=== PATIENT | male | born 1980 ===

== ENCOUNTER 2018-06-12 05:13 | Inpatient (IN) | payer OTHER, SELFPAY ==
[2018-06-12] MEDS ORDERED: Propofol 1,000 MG/100 ML VIAL IV ONE (05:18)
[2018-06-12] MEDS ORDERED: fentaNYL Citrate/PF 2,000 MCG in Sodium Chloride 0.9% 60 ML IV SCH ×2 (05:19→06:56)
[2018-06-12 05:42] LABS: CO2 Tension 75.4 mmHg (35.0-45.0); O2 Tension (PaO2) 74.5 mmHg (80.0-100.0); pH, Arterial 7.12 (7.35-7.45)
[2018-06-12 05:43] LABS: Actual Bicarbonate (HCO3a) 23.8 mEq/L (22-28); Base Excess (BEa) -7.7 mEq/L (-2.0 to +3.0); Calcium, Ionized 1.14 mmol/L (1.12-1.30); Carboxyhemoglobin (COHb) 0.4 gm% (0.0-3.0); Hemoglobin (Hb) 17.4 g/dL (14.0-18.0); Potassium - ABG Lab 3.54 mmol/L (3.70-5.30)
[2018-06-12 05:44] LABS: Analyzer IN Cardio ER; Puncture Site LRA
[2018-06-12] MEDS ORDERED: niCARdipine 20MG In NaCl 20 MG/200 ML BAG ONE (05:50)
[2018-06-12] MEDS ORDERED: Piperacillin/Tazobactam 3.375 GM in Sodium Chloride 0.9% 100 ML IVPB SCH (06:00)
[2018-06-12] MEDS ORDERED: Ondansetron PF 4 MG/2 ML Vial IVP PRN (06:32)
[2018-06-12] MEDS ORDERED: Acetaminophen 650 MG Suppository PR PRN (06:32)
[2018-06-12] MEDS ORDERED: Ventilator Sedation Protocol 1 EACH FS ONE (06:39)
[2018-06-12] MEDS ORDERED: Propofol 1,000 MG/100 ML VIAL IV PRN (06:56)
[2018-06-12] MEDS ORDERED: DISCONTINUE PREVIOUS NARCOTIC PAIN MEDICATIONS AND BENZODIAZEPINES FS SCH (06:56)
[2018-06-12] MEDS ORDERED: Lorazepam 2 MG/ML VIAL SLOW IVP PRN (06:56)
[2018-06-12] MEDS ORDERED: Fentanyl BOLUS 250 ML IVPB PRN (06:56)
[2018-06-12] MEDS ORDERED: Propofol BOLUS 1,000 MG/100 ML VIAL IV PRN (06:56)
[2018-06-12] MEDS ORDERED: Morphine 2 MG/ML SYRINGE SLOW IVP PRN (06:58)
[2018-06-12] MEDS ORDERED: Potassium Chloride 20 MEQ in Premix Bag 1 BAG IVPB SCH (07:15)
[2018-06-12] MEDS ORDERED: Vancomycin HCl 1 GM in Premix Bag 1 BAG IVPB SCH (08:00)
[2018-06-12 08:23] LABS: Troponin I 1.303 ng/mL (< 0.028)
[2018-06-12 08:36] LABS: Actual Bicarbonate (HCO3a) 20.9 mEq/L (22-28); Base Excess (BEa) -8.6 mEq/L (-2.0 to +3.0); CO2 Tension 58.6 mmHg (35.0-45.0); Calcium, Ionized 1.06 mmol/L (1.12-1.30); Carboxyhemoglobin (COHb) 0.9 gm% (0.0-3.0); Hemoglobin (Hb) 16.8 g/dL (14.0-18.0); Potassium - ABG Lab 3.94 mmol/L (3.70-5.30)
[2018-06-12 08:37] LABS: O2 Tension (PaO2) 58.4 mmHg (80.0-100.0); pH, Arterial 7.17 (7.35-7.45)
[2018-06-12 08:38] LABS: Puncture Site RR
[2018-06-12 08:44] VITALS: BMI 31.1
[2018-06-12] MEDS ORDERED: Famotidine/PF 20 mg/2ml Vial SLOW IVP SCH (09:00)
--- NOTE | 2018-06-12 09:51 | CT ---
PRELIMINARY REPORT/[facility]/EMERGENTY AFTER-HOURS PROCEDURE CT Angiography Head With Intravenous Contrast EXAM DATE/TIME: 06/12/2018 6:17 AM CLINICAL HISTORY: 37 years old, male; Signs and symptoms; Convulsions / seizures; Type not specified; Patient HX: 37m p resents to the ed after being transferred from [place] [facility]. Previous scan shows sub arachnoid hemorrhage. No known injury or trauma. O2 sat 90 - 92 until arrival it was 97. TECHNIQUE: Axial computed tomographic angiography images of the head with intravenous contrast using CT angiogra phy protocol. Coronal and sagittal reformatted images were created and reviewed. MIP reconstructed images were created and reviewed. COMPARISON: No relevant prior studies available. FINDINGS: Right internal carotid artery: Unremarkable. Intracranial segment is patent with no significant steno sis. No aneurysm. Right anterior cerebral artery: Unremarkable. No occlusion or significant stenosis. No aneurysm. Right middle cerebral artery: Unremarkable. No occlusion or significant stenosis. No aneurysm. Right posterior cerebral artery: Unremarkable. No occlusion or significant stenosis. No aneurysm. Right vertebral artery: Unremarkable. No occlusion or significant stenosis. No aneurysm. Left internal carotid artery: There is a 5 x 4 x 3 mm saccular aneurysm arising from the left posteri or internal carotid artery at the expected origin of the posterior communicating artery origin. Left anterior cerebral artery: Unremarkable. No occlusion or significant stenosis. No aneurysm. Left middle cerebral artery: Unremarkable. No occlusion or significant stenosis. No aneurysm. Left posterior cerebral artery: Unremarkable. No occlusion or significant stenosis. No aneurysm. Left vertebral artery: Unremarkable. No occlusion or significant stenosis. No aneurysm. Basilar artery: Unremarkable. No occlusion or significant stenosis. No aneurysm. Other: No subarachnoid hemorrhage is not well visualized secondary to the presence of IV contrast mat erial. There is no mass effect or shift of midline structures. There is no hydrocephalus. There are small air-fluid levels within the maxillary sinuses. 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 Thank you for allowing us to participate in the care of your patient. Dictated and Authenticated by: Cristina Arcos MD 06/12/2018 7:44 AM Central Time ([place] & [place]) FINAL REPORT HEAD CT ANGIOGRAM WITH 3D RENDERING: EMERGENCY AFTER HOURS EXAM TIME: 6:19 a.m. DATE: 06/12/2018. FINDINGS: There is an approximately 0.3 x 0.4 x 0.5 cm sacular aneurysm arising posteriorly from the left poste rior internal carotid artery at the level of the posterior communicating artery. Extensive subarachn oid hemorrhage as well as some intraventricular hemorrhage. Extensive sinus fluid and mucosal diseas e. POS: [facility]
[2018-06-12] MEDS ORDERED: ISOVUE-370 76%-LOCM 1 ML ONE (10:19)
[2018-06-12 10:31] LABS: Troponin I 2.187 ng/mL (< 0.028)
--- NOTE | 2018-06-12 10:54 | RAD ---
CHEST 1 VIEW: HISTORY: Seizure. COMPARISON: None. FINDINGS: The patient was intubated with endotracheal tube tip above the chris approximately 1.8 cm. Enteric tube sideport within the gastric body. There is extensive pulmonary edema. Heart size is mildly enl arged. IMPRESSION: Extensive pulmonary edema, likely neurogenic in nature given the patient's history. POS: [facility]
--- NOTE | 2018-06-12 10:55 | RAD ---
ABDOMEN 1 VIEW: HISTORY: Subarachnoid hemorrhage. COMPARISON: None. FINDINGS: The enteric tube tip is in the gastric body. There is moderate gaseous distention of the stomach. Moderate stool burden throughout the colon. IMPRESSION: Moderate gaseous distention of the stomach. POS: [facility]
[2018-06-12] MEDS ORDERED: Tranexamic Acid 1,000 MG in Sodium Chloride 0.9% 100 ML IVPB SCH (11:00)
[2018-06-12] MEDS ORDERED: Tranexamic Acid 1,000 MG in Sodium Chloride 0.9% 250 ML 250 ML IVPB SCH (11:15)
[2018-06-12 11:45] LABS: Actual Bicarbonate (HCO3a) 18.9 mEq/L (22-28); Base Excess (BEa) -8.2 mEq/L (-2.0 to +3.0); CO2 Tension 44.5 mmHg (35.0-45.0); Calcium, Ionized 1.06 mmol/L (1.12-1.30); Carboxyhemoglobin (COHb) 0.8 gm% (0.0-3.0); Hemoglobin (Hb) 15.6 g/dL (14.0-18.0); O2 Tension (PaO2) 96.2 mmHg (80.0-100.0); Potassium - ABG Lab 4.79 mmol/L (3.70-5.30); pH, Arterial 7.25 (7.35-7.45)
[2018-06-12 11:46] LABS: ALV-art Gradient 561.175 (0-20); Puncture Site LB
--- NOTE | 2018-06-12 12:05 | PRG ---
DATE OF SERVICE: 06/12/2018 This is a 30-minute initial hospital visit note in which 30 minutes were spent in reviewing the imagi ng record, evaluation and examination of the patient and formulation of plan. Greater than 50% of th e time was spent in counseling. SUBJECTIVE: Mr. Reyes is a 37-year-old incarcerated man. He sustained a thunderclap headache early this morning. Head CT demonstrates a Farmer 3+1 aneurysmal subarachnoid hemorrhage aneurysm that is found in the left common PCOM region, approximately [address] in size on CT angiography. His exam is fav orable in that he is nonfocal, but he is sedated and his hemodynamics are acceptable at this point. I do not have a way to do formal angiography for diagnostic and therapeutic purposes and I have spoke n with our colleagues in [facility] who accepted him for angiography for diagnostic and pot entially therapeutic purposes or any further management they deem appropriate. I should note he does not have hydrocephalus, although obviously has a tight-appearing brain. His exam remains favorable. We will initiate tranexamic acid and nimodipine and arrange for transfer. He is already intubated.
[2018-06-12] MEDS ORDERED: niMODipine 30 MG CAP PO SCH (13:00)
[2018-06-12] MEDS ORDERED: niMODipine 30 MG CAP PER TUBE SCH (13:00)
--- NOTE | 2018-06-12 13:23 | CON ---
DATE OF CONSULTATION: 06/12/2018 HISTORY OF PRESENT ILLNESS: Mr. Reyes is a 37-year-old male from the [employer]. History is obtained from the nurse. Apparently, he was found down in intermediate with seizure activity. CT scan in [place] sh owed subarachnoid bleed. [place] [facility] [place] angiogram shows an aneurysm here. Neurosurgery has been consulted, but has not seen the patient yet. PAST MEDICAL HISTORY, FAMILY HISTORY, SOCIAL HISTORY: All unknown. He is incarcerated in the [employer]. PHYSICAL EXAMINATION: VITAL SIGNS: Blood pressure 150/72, heart rate was 132 earlier, it is 74 before that. He became tyler tated a little while ago and sat up in bed. He is now deeply sedated. HEENT: His pupils react. Sclerae is anicteric. NECK: Supple. LUNGS: Clear anteriorly. HEART: Regular rhythm. S1 and S2 are normal. ABDOMEN: Soft and nontender. EXTREMITIES: Without clubbing, cyanosis, or edema. LABORATORY DATA: The pH 7.17, pCO2 of 58, pO2 58, this is on IMV of 16 in the emergency room. Venti lator was adjusted as soon as the patient arrived in the critical care unit. For some reason a tropo edel was done. Labs in [place] showed a white count 25, hemoglobin 15.8, platelets 320,000. Sodium 140, potass ium 2.4, chloride 105, bicarbonate 24, BUN 10, creatinine 1.23, glucose 222. IMPRESSION: 1. Subarachnoid hemorrhage. 2. 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 He will be kept deeply sedated until Neurosurgery needs him to be allowed to wake up for an assessmen t. He is actually for extremity changes and needs to continue to be restrained for protection of the nurses as he awakened quite combative. Critical care time was 30 minutes. Repeat blood gas will be done at noon.
--- NOTE | 2018-06-12 14:00 | PDOC.EVN ---
Event Note - Event Note Event Note: Saw pt earlier today.Admitted to [facility] for SAH and aneurysms. Chart reviewed.Care discussed w RN. Later on chart review i found out that Pt has been transferred by consultants for higher level of care . I was not notified by anyone about the need for transfer or the fact that Pt is being transferred. Pls note that the transfer happened without my knowledge.
[2018-06-12 14:46] VITALS: BP 91/72; TEMP 98.6
--- NOTE | 2018-06-13 14:33 | HP ---
PRIMARY CARE PHYSICIAN: The patient lives in residential. CODE STATUS: FULL CODE. TIME OF EVALUATION: 6:00 a.m. CHIEF COMPLAINT: The patient was noted to have a seizure. HISTORY OF PRESENT ILLNESS: This is a 37-year-old male patient with no known past medical history, brought in from [facility] with seizure-like activity _ ____ first symptoms they noticed on the patient was active seizures. For that reason, he was brought in to the ER, there was no significant information given from the jail staff, there is no reported known medical history. No clear triggers, no alleviating factors. The patient was intubated. The patient was found to have severe respiratory acidosis and was found to have ARDS , was found to have subarachnoid hemorrhage. Neurosurgery has been consulted from the ER, as per ER report, we will follow recommendations. The patient has been with a diastolic blood pressure in the high side. For that reason, the patient has been started on Cardene drip, and sedation protocol. REVIEW OF SYSTEMS: Unable to obtain. The patient is sedated and intubated. PAST MEDICAL HISTORY: Unknown. PAST SURGICAL HISTORY: Unknown. PSYCHIATRIC HISTORY: Unknown. SOCIAL HISTORY: The patient lives in residential, rest is unknown. FAMILY HISTORY: Unable to obtain. Patient is sedated. DRUG ALLERGIES: No recorded allergies. REPORTED MEDICATIONS: No reported medication. PHYSICAL EXAMINATION: VITAL SIGNS: On presentation, blood pressure 153/120 with a heart rate 82, respiratory rate was 22, and temperature was 99.5. CONSTITUTIONAL: The patient was intubated, sedated. HEENT: Eyes, the patient has pinpoint pupils on both sides. Moist oral mucosa. Nonicteric. NECK: No JVD. RESPIRATORY: Patient has bilateral air entry, decreased with bilateral rales, wheezing. CARDIOVASCULAR: The patient had no edema. ABDOMEN: Soft, normal bowel sounds. MUSCULOSKELETAL: Baseline range of motion and strength. No tenderness. SKIN: Warm and intact. No pallor, no rash, no redness. Peripheral pulses are present. Capillary refill seems to be intact. NEUROLOGIC: Patient is intubated, sedated, unable to fully explore for that reason. PSYCHIATRIC: Unable to obtain. IMAGING DATA: EKG was reviewed and discussed with the performing physician from . The patient has normal sinus rhythm with a rate of 63. Some ST depression in anterolateral leads with T-wave inversion in leads left ventricular hypertrophy, nonspecific ST-T wave abnormalities. RADIOLOGY: Chest film showed diffuse infiltrates. Brain CT, none reported. CT head without contrast shows increased opacity in the brain , most likely compatible with subarachnoid hemorrhage. CT [place] was done and is not reported yet. KUB was done. NG tube is in place. Stomach is dilated with air, probably from intubation procedure. Chest x-ray showed bilateral haziness, likely compatible with ARDS. LABORATORY DATA: Labs were reviewed. The patient has ABG with pH 7.12, CO2 of 75, pO2 of 74.5. This was done , tidal volume 450, PEEP of 10. White count 25, hemoglobin 15, MCV 91, and platelet count 320. Chemistry: Sodium 140 , potassium 2.4, chloride 105, carbon dioxide 24, anion gap 13, BUN 10, creatinine 1.03, GFR 67, glucose . Lactic acid 2.6, calcium 8.2, total bilirubin 0.4. LFTs were normal. Troponin 0.126. ASSESSMENT AND PLAN: The patient will be placed in the hospital for following medical problems: 1. Acute hypercapnic hypoxic respiratory failure. The patient needed support with mechanical ventilation , we will follow recommendations. Could be secondary to ARDS. 2. Acute respiratory distress syndrome, seen on chest x-ray, etiology is unclear, could be related to intracranial hemorrhage; however, conditions in which the problem happened, the patient is unknown. Patient also had possible seizure, aspiration pneumonia, or infection remains in the differential. Given severity of illness, we will cover with antibiotics, we will do cultures, we will adjust treatment as needed. We will follow ICU consult and recommendations. 3. Subarachnoid hemorrhage, also seen on the CT head, unclear etiology, not known the symptoms started, Neurosurgery has been called, we will follow recommendations. 4. Moderate hypokalemia, potassium replacement has been started. We will follow levels, we will adjust treatment as needed. 5. Lactic acidosis, could be secondary to underlying sepsis, versus status epilepticus. We will treat the underlying condition. 6. Mildly elevated troponin at 0.126, this could be NSTEMI type 2, secondary to demand ischemia. 7. Leukocytosis, unclear etiology, secondary to acute distress; however, patient does have positive chest x-ray, is being covered with antibiotics. We will be able to adjust treatment depending on how the patient responds to initial plan. 8. Deep venous thrombosis prophylaxis. MTDD
== END 2018-06-12 11:55 | disposition short-term general hospital (02) | DRG 64 ==
LOC: ERS 05:13 → CCU 07:45
PROVIDERS: ADMIT Hospitalist; ATTEND Hospitalist
PROC: 02HV33Z Insertion of Infusion Device into Superior Vena Cava, Percutaneous Approach (ICD-10-PCS; principal; 2018-06-12)
DX: I60.9 Nontraumatic subarachnoid hemorrhage, unspecified (principal); J96.01 Acute respiratory failure with hypoxia; J96.02 Acute respiratory failure with hypercapnia; E87.2 Acidosis; E87.6 Hypokalemia
CPT/HCPCS: 36415; 36416; 36556; 70496; 71045; 74018; 82805; 94002; 96365; 96366; 96375; 99292; J1953; J2543; J2704; J3010; J3370; J7050; S0028